=== PATIENT | male | born 1985 | race Caucasian/White ===

== ENCOUNTER 2018-04-02 13:22 | Emergency (ER) | payer MEDICAID ==
[~2018-04-02] VITALS: Ht 165.1 cm; Wt 88.6 kg
[2018-04-02] MEDS ORDERED: KETOROLAC TROMETHAMINE 60 MG/2 ML VIAL IM ONE (14:15)
[2018-04-02 15:50] VITALS: BP 141/92
== END 2018-04-02 15:55 | disposition home or self-care (01) ==
LOC: EMS 13:23
DX: S83.92XA Sprain of unspecified site of left knee, initial encounter (principal); X50.9XXA Other and unspecified overexertion or strenuous movements or postures, initial encounter; Y93.02 Activity, running; Y92.89 Other specified places as the place of occurrence of the external cause; Y99.8 Other external cause status
CPT/HCPCS: 29505; 73562; 96372; 99283; J1885

== ENCOUNTER 2021-10-27 11:13 | Emergency (ER) | payer MEDICAID ==
[~2021-10-27] VITALS: Ht 165.1 cm; Wt 95.5 kg
[2021-10-27] MEDS ORDERED: LOSA-382 PO (11:21)
[2021-10-27] MEDS ORDERED: KETOROLAC TROMETHAMINE 30 MG/ML VIAL IM ONE (13:15)
[2021-10-27 13:31] VITALS: BP 125/85
[2021-10-27] MEDS ORDERED: IBUP-2070 PO (15:21)
== END 2021-10-27 16:04 | disposition home or self-care (01) ==
LOC: EMS 11:13
DX: S83.8X1A Sprain of other specified parts of right knee, initial encounter (principal); Z98.890 Other specified postprocedural states; X50.1XXA Overexertion from prolonged static or awkward postures, initial encounter; Y93.89 Activity, other specified; Y92.89 Other specified places as the place of occurrence of the external cause; Y99.8 Other external cause status
CPT/HCPCS: 99283; 73562; 96372; J1885

== ENCOUNTER 2023-10-25 16:51 | Emergency (ER) | payer MEDICAID ==
[~2023-10-25] VITALS: Ht 165.1 cm; Wt 90.9 kg
[~2023-10-25 16:51] MED LIST: IBUP-1492 PO; LOSA-382 PO
[2023-10-25 16:59] VITALS: BP 115/68; PULSE 100; RESP 16; TEMP 98.3
== END 2023-10-25 21:20 | disposition home or self-care (01) ==
LOC: EMS 16:51
DX: S93.402A Sprain of unspecified ligament of left ankle, initial encounter (principal); W18.42XA Slipping, tripping and stumbling without falling due to stepping into hole or opening, initial encounter; Y93.89 Activity, other specified; Y92.89 Other specified places as the place of occurrence of the external cause; Y99.8 Other external cause status
CPT/HCPCS: 99283